=== PATIENT | male | born 1945 | race Caucasian/White ===

== ENCOUNTER → 2018-04-28 | Outpatient (CLI) | payer MEDICARE ==
--- NOTE | 2018-04-29 16:19 | US ---
EXAMINATION TYPE: US thyroid st tissue head/neck DATE OF EXAM: 04/28/2018 COMPARISON: NONE CLINICAL HISTORY: R59.0 ENLARGED LYMPH NODES. Patient states doctor felt palpable area within right n dbe Probable lymph node visualized measuring 0.7 x 0.4 x 0.5 cm. In the right neck, there is a heterogeneous area visualized 1.1 x 0.6 x 0.5 cm inferior to the proxi mal CCA. There is no vascularity visualized within this area. IMPRESSION: 1. Solitary nonenlarged right cervical chain lymph node containing a normal appearing fatty hilum. 2. Additional 1.1 cm soft tissue lesion inferior to the proximal common carotid artery. This also may represent a lymph node however appears heterogeneous in echogenicity and therefore CT neck with cont rast is recommended for further evaluation to exclude small mass, in this region possible paraganglio ma.
== END | disposition home or self-care (01) ==
LOC: RADUSWWP 15:39
PROVIDERS: ATTEND Family Medicine
DX: M79.89 Other specified soft tissue disorders (principal); R59.0 Localized enlarged lymph nodes
CPT/HCPCS: 76536

== ENCOUNTER → 2018-05-17 | Outpatient (CLI) | payer MEDICARE ==
--- NOTE | 2018-05-17 11:56 | CT ---
EXAMINATION TYPE: CT soft tissue neck w con DATE OF EXAM: 05/17/2018 COMPARISON: Thyroid ultrasound 04/28/2018 HISTORY: Localized swelling right sided neck CT DLP: 440 mGycm CONTRAST: Patient injected with 100 mL of Isovue 300. TECHNIQUE: Axial images at 3 mm thick sections. Reconstructed images in the coronal plane and sagitt al plane are reviewed. FINDINGS: Limited CT sections are obtained the lung apices. The lung apices appear clear. CT neck: The torus tubarius and fossa of Rosenmuller are normal. Sports Journalist spaces are normal. Para nasal sinuses and mastoid air cells are clear. Parotid glands appear normal and symmetrical. Submandibular glands, are normal. Parapharyngeal spac es are normal. No suspicious adenopathy is evident. The hypopharynx appears within normal limits. Vocal cord level appear symmetrical. Thyroid as visualized is normal. Some degenerative disc changes within the cervical spine. IMPRESSIONS: 1. No suspicious abnormality to account for right neck swelling. No discrete masses or enlarged lymph adenopathy is evident. 2. No suspicious masses anterior to the right common carotid artery
== END | disposition home or self-care (01) ==
LOC: RADCTMAIN 08:16
PROVIDERS: ATTEND Family Medicine
DX: R22.1 Localized swelling, mass and lump, neck (principal)
CPT/HCPCS: 70491; Q9967

== ENCOUNTER → 2020-03-10 | Outpatient (CLI) | payer MEDICARE ==
--- NOTE | 2020-03-10 18:54 | US ---
EXAMINATION TYPE: US venous doppler duplex LE LT DATE OF EXAM: 03/10/2020 6:47 PM COMPARISON: US CLINICAL HISTORY: R60.0 Edema. Edema left leg x 1 week. No hx of DVT. Patient does not take thinners. SIDE PERFORMED: Left TECHNIQUE: The lower extremity deep venous system is examined utilizing real time linear array sonog sunshine with graded compression, doppler sonography and color-flow sonography. VESSELS IMAGED: External Iliac Vein (EIV) Common Femoral Vein Deep Femoral Vein Greater Saphenous Vein * Femoral Vein Popliteal Vein Small Saphenous Vein * Proximal Calf Veins (* superficial vessels) Left Leg: No evidence of DVT in veins imaged at this time from prox calf veins to EIV. There appears to be a hyperechoic area with thin hypoechoic border in the left groin measurin.0 x 2.6 x 1.4 cm . IMPRESSION: No sign of deep vein thrombosis in the left leg. 3 x 1.5 cm left inguinal lymph node noted.
== END | disposition home or self-care (01) ==
LOC: RADUSMAIN 17:54
PROVIDERS: ATTEND Family Medicine
DX: R60.0 Localized edema (principal)

== ENCOUNTER 2020-04-10 08:06 | Day surgery (SDC) | payer MEDICARE ==
[2020-04-07 15:52] VITALS: BMI 30.4
[~2020-04-10 08:06] MED LIST: LACTATED RINGERS 1,000 ML IV SCH
[2020-04-10] MEDS ORDERED: LIDOCAINE 1% INJ 10MG/ML (20 ML MDV) ONE (08:57)
[2020-04-10] MEDS ORDERED: PROPOFOL 10 MG/ML 20 ML VIAL IV ONE (08:57)
--- NOTE | 2020-04-10 09:20 | P.PCN ---
Date of Procedure: 04/10/20 Description of Procedure: BRIEF HISTORY: Patient is a 74-year-old male presenting for outpatient colonoscopy for evaluation of screening for malignant neoplasm in the colon. Denies any change in bowel habits, blood per rectum or abdominal pain. No prior colonoscopies reported. No family history of colon cancer. PROCEDURE PERFORMED: Colonoscopy with polypectomy. PREOPERATIVE DIAGNOSIS: Screening for malignant neoplasm of the colon, no prior colonoscopies reported. ESTIMATED BLOOD LOSS: Minimal. IV sedation per Anesthesia. PROCEDURE: After informed consent was obtained, the patient, was brought into the endoscopy unit. IV sedation was administered by Anesthesia under continuous monitoring. Digital rectal examination was normal. Initially the Olympus CF-190 flexible video colonoscope was then inserted in the rectum, gradually advanced into the cecum without any difficulty. Careful examination was performed as the scope was gradually being withdrawn. Ileocecal valve and the appendiceal orifice were visualized and appeared normal. Prep was excellent. Mucosa of the cecum, ascending colon, transverse colon, descending colon, sigmoid colon, and rectum appeared normal. Diminutive 2 mm cecal polyp removed with cold forcep polypectomy. Retroflexion was performed in the rectum and no lesions were seen. The patient tolerated the procedure well. IMPRESSION: Normal-appearing colon from rectum to cecum. Diminutive cecal polyp removed with cold forceps. RECOMMENDATIONS: Findings of this examination were discussed with the patient. Okay to resume diet. Okay to resume medications. Would recommend repeat colonoscopy in 7 years if medically stable, pending pathology from polypectomy.
[2020-04-11 08:12] VITALS: BP 151/79; PULSE 52; RESP 16; TEMP 97.4
== END 2020-04-10 10:20 | disposition home or self-care (01) ==
LOC: ORWHC2ENDO 08:06
PROVIDERS: ATTEND Internal Medicine
DX: Z12.11 Encounter for screening for malignant neoplasm of colon (principal); D12.0 Benign neoplasm of cecum; I10 Essential (primary) hypertension; Z88.0 Allergy status to penicillin; Z79.899 Other long term (current) drug therapy; Z90.89 Acquired absence of other organs; Z98.41 Cataract extraction status, right eye; Z98.42 Cataract extraction status, left eye; Z98.890 Other specified postprocedural states
CPT/HCPCS: 88305; 45380; J2001; J2704